=== PATIENT | female | born 2000 | race Caucasian/White ===

== ENCOUNTER 2022-08-10 10:09 | Emergency (ER) | payer SELFPAY ==
[2022-08-10] VITALS (12 sets, daily range): BP systolic 101–141; BP diastolic 63–96; PULSE 83–106; TEMP 36.8; O2SAT 96–99; BMI 19.5
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
[2022-08-10] MEDS: ACETAMINOPHEN 500 MG TABLET 1000 MG PO (10:46)
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
== END 2022-08-10 12:30 | disposition home or self-care (01) ==
LOC: ED 11:56
PROVIDERS: Emergency Provider Family Medicine; PCP Pediatrics
DX: S09.90XA Unspecified injury of head, initial encounter (principal); V43.02XA Car driver injured in collision with other type car in nontraffic accident, initial encounter
CPT/HCPCS: 70450; 72125; 99283; 99284; A9270

== ENCOUNTER 2023-05-06 19:26 | Emergency (ER) | payer OTHER, SELFPAY ==
[2023-05-06] MEDS: 0.9 % SODIUM CHLORIDE 1000 ml 1,000 ML IV (19:35)
[2023-05-06] MEDS: FAMOTIDINE 10 MG/ML inj 40 MG IVP (19:35)
[2023-05-06] MEDS: METHYLPREDNISOLONE SOD SUCC 62.5 MG/ML (125) 125 MG IVP (19:35)
[2023-05-06] MEDS: diphenhydrAMINE 25 MG CAPSULE 50 MG PO (19:35)
--- NOTE | 2023-05-06 19:51 | ED.ALLEREA ---
HPI - Allergic Reaction General Date Seen: 05/31/23 Chief complaint: Allergic Reaction Stated complaint: Reaction Time Seen by Provider: 05/06/23 19:28 Source: patient Mode of arrival: ambulatory Limitations: no limitations History of Present Illness HPI narrative: Patient is a 22-year-old female with no pertinent medical problems presenting to the emergency department for allergic reaction. She was at work today and noticed diffuse itching, urticaria and swollen eyes. Has not noticed any changes to her detergent or soap at home. States symptoms started suddenly. States prior to this occurrence she ate a peanut butter and jelly sandwich, 2 bananas a too big chips. She states she has eaten all this stuff before without issue. Is states he has even eating from the same peanut butter jar all week. Denies chest pain, shortness of breath, abdominal pain, nausea, dizziness. Denies ever having this happen to her before. Is not aware of any allergies. Is unaware of going into any patient's rooms the had a strong perfume or cologne. Related Data Home Medications Medication Instructions Recorded Confirmed dextroamphetamine-amphetamine ER PO 08/10/22 15 mg 24hr capsule,extend release escitalopram oxalate 10 mg tablet mg 08/10/22 hydroxyzine HCl 25 mg tablet mg 08/10/22 Previous Rx's Medication Instructions Recorded epinephrine 0.3 mg/0.3 mL 0.3 mg (0.3 mL) IM Q5-15M PRN #2 ea 05/06/23 injection, auto-injector (EpiPen) prednisone 20 mg tablet 40 mg (2 x 20 mg) PO DAILY #8 tabs 05/06/23 Allergies Allergy/AdvReac Type Severity Reaction Status Date / Time No Known Drug Allergies Allergy Verified 05/06/23 20:19 Review of Systems Status of ROS Reports: 10 or more systems reviewed and unremarkable except as noted in History and below [facility] Social History Smoking Status: Never smoker How often do you have a drink containing alcohol: 2-3 times a week How many standard drinks containing alcohol do you have on a typical day: 1 or 2 How often do you have six or more drinks on one occasion: Never AUDIT-C Alcohol total score: 3 service: No Exam Narrative: Exam Narrative: Const: Well-nourished, Well-developed, in mild distress Eyes: PERRL, swelling of the eyelids HENT: Atraumatic external nose and ears. Moist mucous membranes. Neck: Symmetric, trachea midline, No thyromegaly. CVS: RRR, No murmurs or gallops. Peripheral pulses 2+ and equal in all extremities RESP: Unlabored respiratory effort. Clear to auscultation bilaterally. GI: Nontender/Nondistended, No rebound or guarding. MSK:Extremities w/o deformity, Normal Active ROM Skin: Warm, Dry. Diffuse erythema seen on patient's arms, face, back, abdomen Neuro: Normal Muscle tone, No focal neurological deficits. Psych: Awake, Alert, & Oriented x3. Appropriate mood and affect. Const: Vital Signs, click to edit/add: Vital Signs - 24 hr 05/06/23 20:13 05/06/23 20:41 Temperature 98.7 F Pulse Rate 84 Pulse Rate [Right Pulse Oximeter] 79 Respiratory Rate 16 16 Blood Pressure 132/77 Blood Pressure [Ri ght Upper Arm] 120/63 Pulse Oximetry 99 99 Oxygen Delivery Me thod Room Air Course Vital Signs Vital signs: Initial Vital Signs Respiratory Effort Normal 05/06/23 19:39 Respiratory Depth Normal 05/06/23 19:39 Respiratory Pattern Normal 05/06/23 19:39 Vital Signs Temperature 98.7 F 05/06/23 20:13 Pulse Rate 79 05/06/23 20:13 Respiratory Rate 16 05/06/23 20:13 Blood Pressure 120/63 05/06/23 20:13 Pulse Oximetry 99 05/06/23 20:13 Oxygen Delivery Method Room Air 05/06/23 20:13 Temperature 98.7 F 05/06/23 20:13 Pulse Rate 84 05/06/23 20:41 Respiratory Rate 16 05/06/23 20:41 Blood Pressure 132/77 05/06/23 20:41 Pulse Oximetry 99 05/06/23 20:41 Oxygen Delivery Method Room Air 05/06/23 20:13 MDM - Allergic Reaction MDM Narrative Medical decision making narrative: Patient is 22-year-old female presenting to emergency department for allergic reaction. She is not showing signs of anaphylaxis at this time. Unsure what she was allergic to. Will order a Pepcid, Solu-Medrol, Benadryl. After receiving the medication she states she is feeling much better. The rash appears to be going away along with the swelling. Discharge Plan Discharge Clinical Impression: Allergic reaction Qualifiers: Encounter type: initial encounter Qualified Code(s): T78.40XA - Allergy, unspecified, initial encounter Patient Disposition: Home, Self-Care Condition: Improved Instructions: General Allergic Reaction (ED), Allergy Testing (ED) Additional Instructions: You should follow-up with an fashion marketer considering symptoms are having. Return for new or worsening symptoms. Start taking the prescribed steroids tomorrow. Activity Level: No Restrictions Discharge Diet: Regular Prescriptions: New prednisone 20 mg tablet 40 mg PO DAILY Qty: 8 0RF epinephrine [EpiPen] 0.3 mg/0.3 mL auto-injector 0.3 mg IM Q5-15M PRNQty: 2 0RF Rx Instructions: do not exceed 3 doses per episode No Action hydroxyzine HCl 25 mg tablet dextroamphetamine-amphetamine 15 mg capsule,extended release 24hr PO escitalopram oxalate 10 mg tablet Follow Up/Referrals: Carmenza Busch MD [Staff Physician] - Stand Alone Forms: [employer] Info Instructions
[2023-05-06 20:13] VITALS: BP 120/63; PULSE 79; RESP 16; TEMP 37.1; O2SAT 99
[2023-05-06 20:41] VITALS: BP 132/77; PULSE 84; RESP 16; O2SAT 99
== END 2023-05-06 20:57 | disposition home or self-care (01) ==
PROVIDERS: Emergency Provider Student in an Organized Health Care Education/Training Program; PCP Family Medicine
DX: L50.0 Allergic urticaria (principal)
CPT/HCPCS: 36415; 83520; 96374; 96375; 99283; 99284; A9270; J2930; J7030; S0028

== ENCOUNTER 2025-04-02 07:45 | Emergency (ER) | payer OTHER, SELFPAY ==
--- OUTSIDE RECORDS SUMMARY | 2025-04-02 07:47 | XMS_ITS | Clinical Summary ---
Author Organization [facility] Address [address] [place] [address] Care Team Providers Care M[employer] Acquis[employer] Attorney Name Role Phone Unavailable Primary Care Provider Unavailabl e Source Comments You are receiving this document as you are listed as the primary care provider,follow-up provider, or the patient has been referred to you for consultation.This is in compliance with the Medicare and[facility] E[facility] Incentive Program,which states Providers who transition their patient to another setting of careor provider of care or refers their patient to another provider of care shouldprovide summary care record for each transition of care or referral. 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 Gender Identity Not on file Sexual Orientation Not on file Last Filed Vital Signs Vital Sign Reading Time Taken Comments Blood Pressure 138/89 11/07/2024 6:54 PM CDT Pulse 96 11/07/2024 6:54 PM CDT Temperature - - Respiratory Rate 16 11/07/2024 6:54 PM CDT Oxygen Saturation 98% 11/07/2024 6:54 PM CDT Inhaled Oxygen Concentration - - Weight - - Height - - Body Mass Index - - Plan of Treatment Health Maintenance Due Date Last Done Comments Cervical Cancer Screening Due 2001 Chlamydia 2001 MenB Immunization Discussion 2001 HPV Vaccine (1 - 3-dose series) 2016 Adult Preventive Visit 2019 DTaP/Tdap/Td Vaccine (1 - Tdap) 2020 HepB Vaccine (1) 2020 COVID-19 Vaccine ( - 2023-2 5 season) 2024 Influenza Vaccine (#1) 2025 Zoster/Shingles Vaccine (1 of 2) 2051 HIV Screening (Preventive Services) Completed 11/07/2024 Hep C Screening (Preventive Services) Completed 11/07/2024 HepA Vaccine Aged Out No longer eligi ble based on patient's age to complete this topic Hib Vaccine Aged Out No longer eligi ble based on patient's age to complete this topic IPV (Polio) Vaccine Aged Out No longe r eligible based on patient's age to complete this topic MCV4 Vaccine Aged Out No longer eligi ble based on patient's age to complete this topic Pneumococcal Vaccine Aged Out No long er eligible based on patient's age to complete this topic Procedures Procedure Name Priority Date/Time Associated Diagnosis Comments HIV 1/2 AG/AB 4TH GEN STAT 11/07/2024 7:07 PM CDT HEPATITIS C ANTIBODY, WITH REFLEX (ANTI-HCV) STAT 11/07/2024 7:07 PM CDT from Last 3 Months or Most Recently Relevant to Health Maintenance Results * HIV 1/2 Ag/Ab 4th Generation (11/07/2024 7:07 PM CDT) HIV 1/2 Antigen/Antib lia (4th generation) Negative (Non Reactive) Negative (Non Reactive) 11/07/2024 7:55 PM CDT [facility] Comment:HIV-1 p24 Antigen an d HIV-1/HIV-2 Antibody not detected Blood Venipuncture / Unknown 11/07/2024 7:07 PM CDT 11/07/2024 7:11 PM CDT us Issac Vergara MD LAB_1 Final Result [address] [address], [facility] * Hepatitis C Antibody, with Reflex (11/07/2024 7:07 PM CDT) Hepatitis C Antibody Negative (Non Reactive) Negative (Non Reactive) 11/07/2024 10:46 PM CDT [facility] Comment:Antibodies to HCV no t detected. Does not exclude the possiblity of exposure to HCV. Blood Venipuncture / Unknown 11/07/2024 7:07 PM CDT 11/07/2024 7:11 PM CDT us Issac Vergara MD LAB_1 Final Result [facility] [address] [place] [address], [facility] from Last 3 Months or Most Recently Relevant to Health Maintenance Insurance [address] [place] [address] [place] [address] [place] [address] [place] [address] [facility]
--- OUTSIDE RECORDS SUMMARY | 2025-04-02 07:48 | XMS_ITS | Clinical Summary ---
Author Organization [employer] [facility] Address [address] [place] [address] Care Team Providers Care Planer Hand Name Role Phone Unavailable Primary Care Provider Unavailabl e Allergies Active Allergy Reactions Criticality Noted Date Comments Peanut Hives 07/06/2023 Medications hydrOXYzine HCL (ATARAX) 25 mg tabletIndications :SOB (shortness of breath) Take 1-2 Tablets (25-50 mg) by mouth every 6 hours if needed for Anxiety. 60 Tablet 1 04/13/20 23 Active triamcinolone (ARISTOCORT; KENALOG) 0.1 % creamIndications: Pityriasis rosea Apply topically to affected area(s) 3 times daily if needed (itching). 15 g 1 07/06/20 23 Active methylphenidate 18 mg extended-release tabletIndications :ADHD (attention deficit hyperactivity disorder), inattentive type Take 1 Tablet (18 mg) by mouth once daily. 30 Tablet 04/24/20 24 Active methylphenidate 18 mg extended-release tabletIndications :ADHD (attention deficit hyperactivity disorder), inattentive type Take 1 Tablet (18 mg) by mouth once daily. 30 Tablet 03/24/20 24 Active methylphenidate 18 mg extended-release tabletIndications :ADHD (attention deficit hyperactivity disorder), inattentive type Take 1 Tablet (18 mg) by mouth once daily. 30 Tablet 02/22/20 24 Active EPINEPHrine (EPIPEN) 0.3 mg/0.3 mL auto-injectorIndi cations:Peanut allergy Inject 0.3 mg (1 Pen) intramuscular each time if needed for Allergic Reaction. 2 Each 2 02/22/20 24 Active cetirizine (ZYRTEC) 10 mg tabletIndications :Urticaria due to food allergy Take 1 Tablet (10 mg) by mouth once daily. 90 Tablet 1 02/22/20 24 Active escitalopram oxalate (LEXAPRO) 10 mg tabletIndications :Generalized anxiety disorder,Mild depression Take 1 Tablet (10 mg) by mouth once daily in the morning. 90 Tablet 10/14/19 25 Active Hospital, Clinic, or Other Facility Administered Medication Ordered Dose Route Frequency Start Date End Date Status levonorgestreL (KYLEENA) intrauterine (5 years) IUD 1 DeviceIndications:Encounter for IUD insertion 1 Device IU Q 5 YEARS 07/08/2020 Active Active Problems Problem Noted Date Diagnosed Date Allergic reaction 02/22/2024 Peanut allergy 02/22/2024 Pap smear for cervical cancer screening 05/05/20 23 Overview (05/05/2023): 03/2023 NIL Plan: pap due 03/2026 Generalized anxiety disorder 02/07/2018 Controlled substance agreement signed 02/07/2018 Overview (02/07/2018): 02/07/18 signed .Miguelina Salcido DNP, T[employer]CH [employer]ER, HOSPITALIST/psychiatry Mild depression 12/13/2017 Adjustment disorder with mixed anxiety and depre ssed mood 04/11/2017 ADHD (attention deficit hype ractivity disorder), 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 Oppositional defiant behavior 01/19/2016 Eczema 07/18/2011 Resolved Problems Problem Noted Date Diagnosed Date Resolved Date Other specified pruritic conditions 08/20/2007 04/26/2018 Overview (08/20/2007): dry skin Hypertrophy of tonsil with adenoids 08/20/2007 04/26/2018 Immunizations Immunization Administration Dates Next Due DTaP 01/01/2007, 3,01/11/2002,10/30,2001 HIB-HepB (Comvax) 11/04/2002,2001,09/13/19 02 HPV 9 (Gardasil 9) 01/19/2016 Hep B (Hepatitis B (Adult) Recombinant Adjuvanted) 07/07/2022,06/01/2022 Hepatitis A (Peds) 08/20/2007,01/01/2007 007 Human Papilloma Virus Vaccine 03/17/2014 Inactivated Polio Vaccine 01/01/2007,,2001,08/31 Influenza A (H1N1), Inactiva zeeshan (Age >=3 Years) 08/10/2009,06/18/2009 Influenza, IIV3 (Age >=3 years) 07/18/20 11,06/11/2010,06/19/2007,05/31 Influenza, IIV4 05/26/2023, 2,04/26/2018,03/31 Influenza,LAIV3 Live Intrana yesenia (Flumist) 06/02/2009 Influenza,LAIV4 Live Intrana yesenia (Flumist) 06/02/2009 MENINGOCOCCAL VACCINE 2 VIAL 2MO-55YO (MENVEO) 04/26/2018 MMR 07/07/2022, 2,01/01/2007,06/30 Meningococcal Vaccine (Menactra) 03/17/2014 Pneumococcal conj 7-Valent ( Prevnar 7) 11/04/2002,04/02/2002,2001,08/31 Tdap 04/27/2023,09/17/2012 Varicella Vaccine 03/17/2014 Family History Medical History Relation Name Comments Diabetes type II Father Hyperlipidemia Maternal Grandmother Hypertension Maternal Grandmother Good Health Mother Anesthesia Problem No Family History Asthma No Family History Cancer-breast No Family History Cancer-colon No Family History Clotting disorder No Family History Diabetes No Family History Heart Disease No Family History Relation Name Status Comments Father Alive Maternal Grandmother Mother Alive Sister 1 Alive Sister 2 Alive Social History Tobacco Use Types Packs/Day Years Used Date Smoking Tobacco: Never Smokeless Tobacco: Never Tobacco Cessation:Counseling Given: Yes Comments:no exposure Alcohol Use Standard Drinks/Week Comments Yes 0 (1 standard drink = 0.6 oz pur e alcohol) 1-2 times monthly PHQ-2 Answer Date Recorded PHQ-2 TOTAL SCORE 2 09/28/2023 Social Connections Answer Date Recorded Frequency of Communication with Friends and Fami ly 0 04/27/2023 Alcohol Use Answer Date Recorded How often do you have a drink containing alcohol ? 2 04/27/2023 How many drinks containing a lcohol do you have on a typical day when you are drinking? 1 04/27/2023 How often do you have five or more drinks on one occasion? 0 04/27/2023 Financial Resource Strain Answer Date R ecorded Difficulty of Paying Living Expenses 3 04/27/2023 Difficulty of Paying Living Expenses Not on file 04/27/2023 Food Insecurity Answer Date Recorded Worried About Running Out of Food in the Last Ye ar 1 04/27/2023 Transportation Needs Answer Date Record ed Lack of Transportation (Medical) 1 04/27/2023 Housing Stability Answer Date Recorded Unable to Pay for Housing in the Last Year 1 04/27/2023 Comments No Sex and Gender Information Value Date Recorded Sex Assigned at Female 10/11/2021 9:01 AM CDT Legal Sex Female 5:45 AM [employer] Gender Identity Female 10/11/2021 9:01 AM CDT Sexual Orientation Straight 10/11/2021 9: 01 AM CDT 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 on file Not on file Not on file Obstetrics History Para Term AB IAB SAB Ectopic Multiple Livin g Live Births 0 0 0 0 0 0 0 0 0 0 0 Last Filed Vital Signs Vital Sign Reading Time Taken Comments Blood Pressure 116/80 02/22/2024 2:03 PM CDT Pulse 86 02/22/2024 2:03 PM CDT Temperature 36.4 C (97.6 F) 10/11/2021 2:26 PM CDT Respiratory Rate 16 10/11/2021 2:26 PM CDT Oxygen Saturation 100% 10/26/2023 1:10 PM CDT Inhaled Oxygen Concentration - - Weight 49.2 kg (108 lb 6.4 oz) 02/22/2024 2:03 P M CDT Height 159 cm (5' 2.6) 04/27/2023 10:15 AM CDT Body Mass Index 19.45 04/27/2023 10:15 AM CDT Plan of Treatment Health Maintenance Due Date Last Done Comments COVID-19 vaccine series ( season) 2024 03/25/2022, 02/25/2022 BMI (ht and wt on same day) for age 18+ 04/27/2024 04/27/2023, 04/13/2023, 10/11/2021, Additional history exists Chlamydia for age 16-24 04/27/2024 04/27/20 23, 08/13/2021, 05/25/2020, Additional history exists Depression screening for age 12+ 09/27/2024 09/28/2023, 04/13/2023, 10/11/2021, Additional history exists Influenza Vaccine (#1) 2025 , 05/24/2022, 04/26/2018, Additional history exists Pap test for age 21-65 04/27/2026 04/27/2023 Tetanus booster 04/27/2033 04/27/2023, 09/17/2012 RSV vaccine for adults or (1 - 1-dose 75+ series) 2076 Pneumococcal series for age 6-49 Aged Out 11/04/2002, 04/02/2002, 2001, Additional history exists No longer eligible based on patient's age to complete this topic HPV series for age 9-26 Completed 01/19/2016, 03/17 Hepatitis B series for 19+ Completed 07/07, 06/01/2022, 11/04/2002, Additional history exists HIV for age 15-65 Completed 04/27/2023 Hepatitis C screening for age 18-79 Completed 04/27/2023 Procedures Procedure Name Priority Date/Time Associated Diagnosis Comments ANTI HIV 1/2 Routine 04/27/2023 11:00 AM CDT Screening for HIV (human immunodeficiency virus) ANTI HCV Routine 04/27/2023 11:00 AM CDT Need for hepatitis C screening test GC CHLAMYDIA TRACH PROBE Routine 04/27/2023 10:45 AM CDT Routine screening for STI (sexually transmitted infection) SET DECORATOR THIN PREP PAP SCREEN IMAGED Routine 04/27/2023 10:45 AM CDT Screening for cervical cancer from Last 3 Months or Most Recently Relevant to Health Maintenance Results * ANTI HCV (04/27/2023 11:00 AM CDT) HEPATITIS C ANTIBODY Non-Reacti ve Non-React dilcia 04/27/2023 4:09 PM CDT [facility] Comment:Please note, per www .CDC.gov: If a patient is known to be at high risk of HCV infection, or is symptomatic, and the physician's suspicion of HCV infection is high, HCV RNA testing is often employed and is of diagnostic value, even after an initial negative anti-HCV test result. Blood BLOOD SPECIMEN / Unknown Venipuncture / Unknown 04/27/2023 11:00 AM CDT 04/27/2023 11:03 AM CDT Hailey Escalante DO SEND OUTS Final Resu lt Performing Organization Address [facility]/ZIP Co de Phone Number [facility] [address] [address], [place] * ANTI HIV 1/2 [10022.0] (04/27/2023 11:00 AM CDT) [facility] HIV-1/HIV-2 SCREEN Non-Reacti ve Non-Reacti ve 04/27/2023 4:12 PM CDT [facility] Comment:HIV-1 p24 and HIV-1/ HIV-2 Ab Not Detected. Blood BLOOD SPECIMEN / Unknown Venipuncture / Unknown 04/27/2023 11:00 AM CDT 04/27/2023 11:03 AM CDT Hailey Escalante DO SEND OUTS Final Resu lt Performing Organization Address City/[facility]/ZIP Co de Phone Number [facility] [address] [place] [address], [place] * SET DECORATOR THIN PREP PAP SCREEN IMAGED [[id number]] (04/27/2023 10:45 AM CDT) [facility] Case Report Gynecologic Cytology Report Case: [id number] Authorizing Provider: Hailey Escalante DO Collected: 04/27/2023 1045 Ordering Location: [facility] Received: 04/27/2023 1115 Clinic First Screen: Baccam, Minie Specimen: SET DECORATOR ThinPrep Vial Screening, Cervical 05/05/2023 2:33 PM CDT [facility] [employer] LABORATORY-C ENTRAL LABORATORY INTERPRETATION/ RESULT NEGATIVE FOR INTRAEPITHELIAL LESION OR MALIGNANCY (NIL) (none) 05/05/2023 2:33 PM CDT [facility]-C ENTRAL LABORATORY at 1433 CDT SPECIMEN ADEQUACY Satisfactory for evaluation Endocervical component present 05/05/2023 2:33 PM CDT [facility] [employer] LABORATORY-C ENTRAL LABORATORY Date of LMP N/A 05/05/2023 2:33 PM CDT [facility]-C ENTRAL LABORATORY Last Pap Date none 05/05/2023 2:33 PM CDT [facility]-C ENTRAL LABORATORY Last Pap Result First Pap/Unknown 2:33 PM CDT [facility]-C ENTRAL LABORATORY Abnormal Pap or [place] Bx in last 5 years No 05/05/2023 2:33 PM CDT [facility]- ENTRAL LABORATORY Menstrual Status Hormonally Suppressed 05/05/2023 2:33 PM CDT [facility]-C ENTRAL LABORATORY [place] Bx Done Today No 05/05/2023 2:33 PM CDT [facility] ENTRAL LABORATORY Additional Information None given 05/05/2023 2:33 PM CDT [facility]-C ENTRAL LABORATORY Comment: Cytology is screened at [facility], Central Laboratory - [address] [place] [address] [address] [facility] - [address] [place] [address] and [facility] - [address] [place] [address] Interpreted at [facility], Central Laboratory - [address], [place] [address] Automated Review Successful 05/05/2023 2:33 PM CDT [facility] ENTRAL LABORATORY Comment:Specimen processed s uccessfully by automated resource teacher device, ThinPrep Imaging System, [employer] Note The pap test is a screening technique, not a diagnostic procedure. It is used primarily to screen for squamous cancers and precursor lesions. Published studies have shown that it is subject to both false negative and false positive results. The pap test should not be used as the sole means to diagnose or exclude pre-malignant and malignant lesions. 05/05/2023 2:33 PM CDT [facility] LABORATORY-C ENTRAL LABORATORY Other (Cervical) Non-Blood / Unknown 04/27/2023 10:45 AM CDT 04/27/2023 11:15 AM CDT Hailey Escalante DO PATHOLOGY/CYTOLOGY Final R esult Performing Organization Address [facility] Co de Phone Number [facility] [address] [address], * GC & CHLAMYDIA DNA PCR [[id number]] (04/27/2023 10:45 AM CDT) CHLAMYDIA PROBE Negative 10:15 PM CDT [facility] TRAL LABORATORY N GONORRHOEAE PROBE Negative 04/27/2023 10:15 PM CDT [facility] TRAL LAB[facility] Other VAGINAL SWAB / Unknown Non-Blood / Unknown 04/27/2023 10:45 AM CDT 04/27/2023 11:15 AM CDT Hailey Escalante DO MICROBIOLOGY Final Resu lt Performing Organization Address [facility] de Phone Number [facility] LABOR[facility]ORY [address] [place] [address], from Last 3 Months or Most Recently Relevant to Health Maintenance Insurance [employer]
[2025-04-02 07:58] VITALS: BP 121/80; PULSE 100; RESP 18; TEMP 36.3; O2SAT 99; BMI 21.3
--- NOTE | 2025-04-02 08:10 | ED.GENADULT ---
HPI - General Adult General Chief complaint: Sore Throat Stated complaint: Sore throat Time Seen by Provider: 04/02/25 07:53 History of Present Illness HPI narrative: Patient is a 24-year-old female who presents with sore throat and cough for the last few days she was out in a [place] doing some horse riding and seemed to get worse after that. She has had some mild reactive airway disease it sounds like in the past with an inhaler helping her through a coughing episode, she also has had prednisone before and takes daily allergy medicine. She has a mild sore throat, able to swallow no airway problems. No other complaints. Related Data Home Medications ?Medication ?Instructions ?Recorded ?Confirmed hydroxyzine HCl 25 mg tablet mg 08/10/22 09/04/24 cetirizine 10 mg tablet mg PO DAILY 09/04/24 09/04/24 fluticasone propionate 50 intranasal 09/04/24 09/04/24 mcg/actuation nasal spray,suspension loratadine 10 mg tablet mg PO DAILY 09/04/24 09/04/24 methylphenidate HCl 18 mg mg PO QAM 09/04/24 09/04/24 tablet,extended release 24 hr Previous Rx's ?Medication ?Instructions ?Recorded epinephrine 0.3 mg/0.3 mL 0.3 mg (0.3 mL) IM Q5-15M PRN #2 ea 05/06/23 injection, auto-injector (EpiPen) albuterol sulfate 90 mcg/actuation 2 puff inhalation QID PRN 04/02/25 aerosol inhaler shortness of breath or wheezing #6.7 grams albuterol sulfate 90 mcg/actuation 2 puff inhalation QID PRN 04/02/25 aerosol inhaler shortness of breath or wheezing #6.7 grams Allergies Allergy/AdvReac Type Severity Reaction Status Date / Time No Known Drug Allergies Allergy Verified 04/02/25 07:57 Review of Systems Status of ROS: Reports: 6 or more systems reviewed and unremarkable except as noted in History and below PFSH PFS Social History Smoking Status: Never smoker How often do you have a drink containing alcohol: 2-3 times a week How many standard drinks containing alcohol do you have on a typical day: 1 or 2 How often do you have six or more drinks on one occasion: Never AUDIT-C Alcohol total score: 3 service: No Exam Narrative: Exam Narrative: Objective vital signs look within normal limits Patient has had tonsils removed, throat looks clear Neck is supple Chest is clear no rales or wheezing Heart rhythm regular no murmur. Patient is alert oriented noncyanotic. Const: Vital Signs, click to edit/add: Vital Signs - 24 hr 04/02/25 07:58 Temperature 97.4 F L Pulse Rate [Pulse Oximeter] 100 Respiratory Rate 18 Blood Pressure [Ri ght Upper Arm] 121/80 Pulse Oximetry 99 Oxygen Delivery Me thod Room Air Course Vital Signs Vital signs: Initial Vital Signs Temperature 97.4 F L 04/02/25 07:58 Temperature Source Temporal Artery Scan 04/02/25 07:58 Pulse Rate 100 04/02/25 07:58 Respiratory Rate 18 04/02/25 07:58 Blood Pressure 121/80 04/02/25 07:58 Blood Pressure Mean 93 04/02/25 07:58 Blood Pressure Position Sitting 04/02/25 07:58 Pulse Oximetry 99 04/02/25 07:58 Oxygen Delivery Method Room Air 04/02/25 07:58 Vital Signs Temperature 97.4 F L 04/02/25 07:58 Pulse Rate 100 04/02/25 07:58 Respiratory Rate 18 04/02/25 07:58 Blood Pressure 121/80 04/02/25 07:58 Pulse Oximetry 99 04/02/25 07:58 Oxygen Delivery Method Room Air 04/02/25 07:58 Temperature 97.4 F L 04/02/25 07:58 Pulse Rate 100 04/02/25 07:58 Respiratory Rate 18 04/02/25 07:58 Blood Pressure 121/80 04/02/25 07:58 Pulse Oximetry 99 04/02/25 07:58 Oxygen Delivery Method Room Air 04/02/25 07:58 Medications Administered Medications: Discontinued Medications Generic Name Dose Route Start Last Admin Trade Name Freq PRN Reason Stop Dose Admin Prednisone 50 mg 04/02/25 08:07 04/02/25 08:18 Prednisone 10 Mg Tablet PO 04/02/25 08:08 50 mg ONCE ONE Administration Medical Decision Making [facility] Narrative Medical decision making narrative: 24-year-old female with sore throat and cough possibly allergic related, could be viral as well or strep. Will check a strep test, viral studies, will call her if any positive results. Will give her prednisone 50 mg here in the ER. Call in albuterol inhaler 2 puffs q.i.d. p.r.n. for her, she continue her allergy medicine. Return if problems or concerns or not improving in the next few days. She was comfortable plan. I suspect most of her symptoms might be related allergy. Lab Data Labs: Lab Results 04/02/25 Range/Units 08:15 SARS-CoV-2 (PCR) Negative SARS-CoV-2 (Negative) Influenza Type A (PCR) Negative PCR FLU A (Negative) Influenza Type B (PCR) Negative PCR FLU B (Negative) RSV (PCR) Negative PCR RSV (Negative) Group A Strep DNA NOT DETECTED (Not Detectd) Discharge Plan Discharge Clinical Impression: Cough, Pharyngitis Patient Disposition: Home, Self-Care Condition: Stable Additional Instructions: Light activity, fluids as needed, continue her allergy medicines, he got a dose of prednisone today, can use an inhaler 2 puffs 4 times a day as needed, return if problems or concerns. Will call with the results of your lab studies if they are positive. Activity Level: Light activity Discharge Diet: Regular Prescriptions: New albuterol sulfate 90 mcg/actuation HFA aerosol inhaler 2 puff inhalation QID PRN (Reason: shortness of breath or wheezing) Qty: 6.7 0RF albuterol sulfate 90 mcg/actuation HFA aerosol inhaler 2 puff inhalation QID PRN (Reason: shortness of breath or wheezing) Qty: 6.7 0RF No Action methylphenidate HCl 18 mg tablet extended release 24hr PO QAM cetirizine 10 mg tablet PO DAILY loratadine 10 mg tablet PO DAILY fluticasone propionate 50 mcg/actuation spray,suspension intranasal Patient Comments: [NO ORIGINAL SIG] epinephrine [EpiPen] 0.3 mg/0.3 mL auto-injector 0.3 mg IM Q5-15M PRNQty: 2 0RF Rx Instructions: do not exceed 3 doses per episode hydroxyzine HCl 25 mg tablet Follow Up/Referrals: Hailey Escalante DO [Staff Physician, Family Practice] Stand Alone Forms: [employer] Info Instructions
[2025-04-02 08:52] LABS: Strep A DNA Probe* NOT DETECTED (Not Detectd)
[2025-04-02 09:04] LABS: PCR FLU A Negative PCR FLU A (Negative); PCR FLU B Negative PCR FLU B (Negative); PCR RSV Negative PCR RSV (Negative); SARS PCR* Negative SARS-CoV-2 (Negative)
== END 2025-04-02 08:28 | disposition home or self-care (01) ==
PROVIDERS: Emergency Provider Family Medicine
DX: R05.9 Cough, unspecified (principal); J02.9 Acute pharyngitis, unspecified
CPT/HCPCS: 87637; 87651; 99283; J7512